=== PATIENT | female | born 1960 | race Caucasian/White ===

== ENCOUNTER 2018-04-30 00:53 | Emergency (ER) | payer BC ==
[2018-04-30] MEDS ORDERED: DIAZEPAM 5 MG TABLET PO ONE (01:21)
[2018-04-30] MEDS ORDERED: MECLIZINE HCL 25 MG TABLET PO ONE (01:21)
[2018-04-30] MEDS ORDERED: NORMAL SALINE 1000 ML 1,000 ML IV ONE (01:22)
--- NOTE | 2018-04-30 01:24 | ER Document Report ---
ED General - General Chief Complaint: Breathing Difficulty Stated Complaint: DIFFICULTY BREATHING Time Seen by Provider: 04/30/18 01:10 Mode of Arrival: Ambulatory Information source: Patient Notes: 57-year-old female with COPD presents with complaint of dizziness, shortness of breath that began just prior to arrival. Patient states that she got into bed and felt like she was going to pass out. She states that she kept having to sit up because she felt like she was having difficulty breathing. Patient does admit to persistent tobacco use. She denies any recent cough, fever, chills, chest pain, abdominal pain, back pain, dysuria, hematuria. She denies sick contacts. TRAVEL OUTSIDE OF THE [place] IN LAST 30 DAYS: No - HPI Onset: Just prior to arrival Onset/Duration: Sudden, Persistent Quality of pain: No pain Associated symptoms: Shortness of breath, Other - Dizziness Exacerbated by: Supine Relieved by: Sitting Similar symptoms previously: No Recently seen / treated by doctor: No - Related Data Allergies/Adverse Reactions: No Known Allergies Allergy (Unverified 09/23/14 15:15) Past Medical History - General Information source: Patient, [facility] Records - Social History Smoking Status: Current Every Day Smoker Cigarette use (# per day): Yes - 15 Smoking Education Provided: Yes - Smoking cessation counseling was provided for 4 minutes at the bedside Frequency of alcohol use: Occasional Drug Abuse: None Lives with: Family Family History: CAD Patient has suicidal ideation: No Patient has homicidal ideation: No Pulmonary Medical History: Reports: Hx COPD - Immunizations Hx Diphtheria, Pertussis, Tetanus Vaccination: - unk Physical Exam - Vital signs Vitals: Temp Pulse Resp BP Pulse Ox 98.2 F 85 18 141/97 H 97 04/30/18 00:59 04/30/18 00:59 04/30/18 00:59 04/30/18 00:59 04/30/18 00:59 - Notes Notes: PHYSICAL EXAMINATION: GENERAL: Well-appearing, well-nourished and in no acute distress. HEAD: Atraumatic, normocephalic. EYES: Pupils equal round and reactive to light, extraocular movements intact, conjunctiva are normal. ENT: Nares patent, oropharynx clear without exudates. Moist mucous membranes. NECK: Normal range of motion, supple without lymphadenopathy LUNGS: Breath sounds clear to auscultation bilaterally and equal. No wheezes rales or rhonchi. HEART: Regular rate and rhythm without murmurs ABDOMEN: Soft, nontender, nondistended abdomen. No guarding, no rebound. No masses appreciated. Female : deferred Musculoskeletal: Normal range of motion, no pitting or edema. No cyanosis. NEUROLOGICAL: Cranial nerves grossly intact. Normal speech, normal gait. Normal sensory, motor exams. Tremulous. 5/5 in dorsi and plantar flexion. NIH -2 for bilateral lower extremity drift. Romberg negative PSYCH: Anxious, tearful. SKIN: Warm, Dry, normal turgor, no rashes or lesions noted. Course - Re-evaluation Re-evalutation: Laboratory 04/30/18 04/30/18 04/30/18 01:40 01:40 01:40 WBC 6.8 RBC 4.56 Hgb 14.8 Hct 42.4 MCV 93 MCH 32.5 MCHC 34.9 RDW 13.1 Plt Count 231 Seg Neutrophils % 40.4 L Lymphocytes % 47.3 H Monocytes % 8.9 Eosinophils % 2.8 Basophils % 0.6 Absolute Neutrophils 2.7 Absolute Lymphocytes 3.2 Absolute Monocytes 0.6 Absolute Eosinophils 0.2 Absolute Basophils 0.0 PT 13.5 INR 0.98 APTT 34.2 D-Dimer 0.34 Sodium 143.2 Potassium 4.2 Chloride 106 Carbon Dioxide 25 Anion Gap 12 BUN 13 Creatinine 0.87 Est GFR ( Amer) > 60 Est GFR (Non-Af Amer) > 60 Glucose 135 H Calcium 10.0 Total Bilirubin 0.4 Direct Bilirubin 0.2 Neonat Total Bilirubin Not Reportable Neonat Direct Bilirubin Not Reportable Neonat Indirect Bili Not Reportable AST 22 ALT 18 Alkaline Phosphatase 100 Creatine Kinase 91 CK-MB (CK-2) Troponin I NT-Pro-B Natriuret Pep Total Protein 6.5 Albumin 4.0 Lipase 339.4 H Urine Color Urine Appearance Urine pH Ur Specific [place] Urine Protein Urine Glucose (UA) Urine Ketones Urine Blood Urine Nitrite Urine Bilirubin Urine Urobilinogen Ur Leukocyte Esterase Urine WBC (Auto) Urine RBC (Auto) Urine Bacteria (Auto) Squamous Epi Cells Auto Urine Mucus (Auto) Urine Ascorbic Acid Salicylates < 1.0 L Urine Opiates Screen Urine Methadone Screen Acetaminophen < 10 L Ur Barbiturates Screen Ur Phencyclidine Scrn Ur Amphetamines Screen U Benzodiazepines Scrn Urine Cocaine Screen U Marijuana (THC) Screen Serum Alcohol < 10 04/30/18 04/30/18 04/30/18 01:40 02:17 02:17 WBC RBC Hgb Hct MCV MCH MCHC RDW Plt Count Seg Neutrophils % Lymphocytes % Monocytes % Eosinophils % Basophils % Absolute Neutrophils Absolute Lymphocytes Absolute Monocytes Absolute Eosinophils Absolute Basophils PT INR APTT D-Dimer Sodium Potassium Chloride Carbon Dioxide Anion Gap BUN Creatinine Est GFR ( Amer) Est GFR (Non-Af Amer) Glucose Calcium Total Bilirubin Direct Bilirubin Neonat Total Bilirubin Neonat Direct Bilirubin Neonat Indirect Bili AST ALT Alkaline Phosphatase Creatine Kinase CK-MB (CK-2) 2.23 Troponin I < 0.012 NT-Pro-B Natriuret Pep 66 Total Protein Albumin Lipase Urine Color STRAW Urine Appearance CLEAR Urine pH 6.0 Ur Specific [place] 1.002 Urine Protein NEGATIVE Urine Glucose (UA) NEGATIVE Urine Ketones NEGATIVE Urine Blood NEGATIVE Urine Nitrite NEGATIVE Urine Bilirubin NEGATIVE Urine Urobilinogen NEGATIVE Ur Leukocyte Esterase TRACE H Urine WBC (Auto) 4 Urine RBC (Auto) 0 Urine Bacteria (Auto) 2+ Squamous Epi Cells Auto 5 Urine Mucus (Auto) RARE Urine Ascorbic Acid NEGATIVE Salicylates Urine Opiates Screen NEGATIVE Urine Methadone Screen NEGATIVE Acetaminophen Ur Barbiturates Screen NEGATIVE Ur Phencyclidine Scrn NEGATIVE Ur Amphetamines Screen NEGATIVE U Benzodiazepines Scrn NEGATIVE Urine Cocaine Screen UNCONFIRMED POSITIVE U Marijuana (THC) Screen UNCONFIRMED POSITIVE Serum Alcohol 04/30/18 04:00 57-year-old female presents with complaint of "just not feeling right", dizziness, shortness of breath. Vital signs stable upon arrival. Exam is significant for bilateral tremors, tearfulness, anxiousness. NIH was performed and scored 2 for bilateral lower extremity drift. Otherwise the patient is neurologically intact. She ambulates without difficulty. She is orthostatic negative. CT of the head was obtained and showed no acute process. CTA of the head and neck were obtained and showed no vessels with significant stenosis. Chest x-ray indicative of COPD. Patient did receive breathing treatments, IV fluids, meclizine, Valium, Zofran. On reevaluation she is sleeping soundly. CBC, CMP, urinalysis is unremarkable. Urine drug screen positive for cocaine and marijuana. This could be the source of the patient's dizziness, anxiousness , dyspnea. EKG was obtained and interpreted by myself and shows the patient to be in normal sinus rhythm at a rate of 78 with a borderline prolonged QTC at 488. Patient consistently denying chest pain. Patient did not disclose to me her drug use when asked earlier in the history. Patient was evaluated and treated as appropriate for the patient's presenting symptoms and complaint, with consideration of any critical or life threatening conditions that may be associated with their obtained history and exam as noted above. All results were discussed with patient. Patient provided the opportunity to ask questions, and express concerns. Patient was educated on treatments based on their presumed diagnosis as noted above. At this time we will discharge the patient with return precautions and follow-up recommendations. Verbal discharge instructions given a the bedside. Medication warnings reviewed. Patient is in agreement with this plan and has verbalized understanding of return precautions. After careful consideration I feel that that patient can be safely discharged from the emergency department, they were advised to followup with a primary care physician in 2-3 days. Dictation on this chart was performed using voice recognition software and may result in unintended grammatical, spelling, syntax or errors. 04/30/18 04:00 04/30/18 04:11 04/30/18 05:50 - Vital Signs Vital signs: Temp Pulse Resp BP Pulse Ox 98.2 F 72 18 104/64 97 04/30/18 00:59 04/30/18 02:58 04/30/18 00:59 04/30/18 02:58 04/30/18 00:59 - Laboratory Result Diagrams: 04/30/18 01:40 04/30/18 01:40 Laboratory results interpreted by me: 04/30/18 04/30/18 04/30/18 01:40 01:40 02:17 Seg Neutrophils % 40.4 L Lymphocytes % 47.3 H Glucose 135 H Lipase 339.4 H Ur Leukocyte Esterase TRACE H Salicylates < 1.0 L Acetaminophen < 10 L - Diagnostic Test Radiology reviewed: Image reviewed, Reports reviewed - EKG Interpretation by Me EKG shows normal: Sinus rhythm Rate: Normal Rhythm: NSR When compared to previous EKG there are: No significant change Discharge - Discharge Clinical Impression: Cocaine use, Marijuana use, Dizziness Dyspnea Qualifiers: Dyspnea type: unspecified Qualified Code(s): R06.00 - Dyspnea, unspecified COPD (chronic obstructive pulmonary disease) Qualifiers: COPD type: unspecified COPD Qualified Code(s): J44.9 - Chronic obstructive pulmonary disease, unspecified Condition: Good Disposition: HOME, SELF-CARE Instructions: Chronic Obstructive Lung Disease ([facility]), Cocaine Abuse ([facility]), Dizziness ([facility]), Dyspnea, Nonspecific ([facility]) Additional Instructions: The CAT scan of your head and your lab work that was performed today was normal. Your urine drug screen was positive for cocaine and marijuana which is likely the cause of your dizziness, anxiety. Please abstain from using illicit drugs. Follow up with your [id number] hours for further care or return to the ED IMMEDIATELY if symptoms worsen or you have any concerns. If you cannot afford to follow up with your primary care physician a list of low cost clinics have been provided at the end of your discharge papers as well. Most prescribed medications have multiple side effects. The safest thing to do is when filling your prescription speak to your pharmacist regarding possible interactions with your normal home medications and over the counter medications such as Ibuprofen, Tylenol, Benadryl. If you experience any symptoms that cause you discomfort or concern you should discontinue the medication immediately and return to the emergency room or call your primary care physician. Forms: Smoking Cessation Education [facility] [NO LOCAL MD] - Follow up as needed ED NIH Stroke Scale - NIH Stroke Scale *: 1. NIH scale should be completed with appropriate accompanying assessment tools. *: 2. The NIH should reflect what the patient is capable of doing and should not be coached by the clinician. 1a. Level of Consciousness: 0=Alert;keenly responsive -: 1=Drowsy -: 2=Obtunded -: 3=Coma/unresponsive or reflex to noxious stimuli. 1a. Responses: 0 1b. Orientation Questions: a. What month is it? -: b. How old are you? -: 0=Answers both questions correctly. -: 1=Answers one question correctly or patient is intubated or has orotracheal trauma. -: 2=Answers neither question correctly. 1b. Responses: 0 1c. Response to commands: a. Open and close eyes? -: b. Supply Requirements Officer and release hand? -: Credit is given despite weakness. Demonstration of task is permitted. Substitute command if hands cannot be used. -: 0=Performs both tasks correctly -: 1=Performs one task correctly -: 2=Performs neither task correctly 1c. Responses: 0 2. Gaze: Establish eye contact and instruct patient to "Follow my finger" -: 0=Normal -: 1=Partial gaze palsy. Gaze is abnormal in one or both eyes, but where forced deviation or total gaze paresis is not present. -: 2=Forced deviation or total gaze paresis. 2. Responses: 0 3. Visual Hurd: Sees fingers in all four quadrants. -: 0=No visual loss. -: 1=Partial hemianopsia. -: 2=Complete hemianopsia. -: 3=Bilateral hemianopsia (including Cortical blindness) 3. Responses: 0 4. Facial Movement: Instruct patient to: -: a. Show me your teeth -: b. Raise your eyebrows -: c. Close your eyes -: d. Smile -: 0=Normal symmetrical movement -: 1=Minor paralysis (flattened nasolabial fold, asymmetry on smiling). -: 2=Partial paralysis (total or near total paralysis of lower face). -: 3=Complete paralysis of upper and lower face 4. Responses: 0 5. Motor functions (left arm): Alternate sides and extend each arm with palms down (90 degrees if sitting or 45 degrees for supine). -: 0=No drift;limb holds for full 10 seconds. -: 1=Drift; limb holds but drifts down before full 10 seconds, but does not hit bed. -: 2=Some effort against gravity; limb cannot get to or maintain position. -: 3=No effort against gravity; limb falls. -: 4=No movement. -: UN=Amputation, joint fusion, explain in comments. 5. Responses (left arm): 0 5. Motor Functions (right arm): Alternate sides and extend each arm with palms down (90 degrees if sitting or 45 degrees for supine). -: 0=No drift;limb holds for full 10 seconds. -: 1=Drift; limb holds but drifts down before full 10 seconds, but does not hit bed. -: 2=Some effort against gravity; limb cannot get to or maintain position. -: 3=No effort against gravity; limb falls. -: 4=No movement. -: UN=Amputation, joint fusion, explain in comments. 5. Responses (right arm): 0 6. Motor Functions (left leg): With patient lying supine, alternate sides and extend each leg (30 degrees always while supine). -: 0=No drift, leg holds position for full 5 seconds -: 1=Drift; leg falls before full 5 seconds but does not hit bed. -: 2=Some effort against gravity, leg falls to bed but some effort against gravity. -: 3=No effort against gravity, leg falls to bed immediately. -: 4=No movement. -: UN=Amputation, joint fusion; explain in comments. 6. Responses (left leg): 1 6. Motor Functions (right leg): With patient lying supine, alternate sides and extend each leg (30 degrees always while supine). -: 0=No drift, leg holds position for full 5 seconds -: 1=Drift; leg falls before full 5 seconds but does not hit bed. -: 2=Some effort against gravity, leg falls to bed but some effort against gravity. -: 3=No effort against gravity, leg falls to bed immediately. -: 4=No movement. -: UN=Amputation, joint fusion; explain in comments. 6. Responses (right leg): 1 7. Limb Ataxia: With eyes open instruct patient to: -: a. "Touch your finger to your nose". -: b. "Touch your heel to your guerrero" -: 0=Absent -: 1=Present in one limb. -: 2=Present in two limbs. -: UN=Amputation or joint fusion; explain in comments. 7. Responses: 0 8. Sensory: Test sensation using pinprick or noxious stimuli. Test as many body parts as possible. -: 0=Normal;no sensory loss -: 1=Mile to moderate sensory loss (patient feels pin prick but is less sharp on affected side). -: 2=Severe or total sensory loss. 8. Responses: 0 9. Best Language: Instruct patient to: -: a. "Describe what you see in this picture." -: b. "Name the items in this picture." -: c. "Read these sentences." -: 0=No aphasia, normal -: 1=Mild to moderate aphasia. -: 2=Severe aphasia -: 3=Mute, global aphasia, no usable speech or auditory comprehension. 9. Responses: 0 10. Articulation, Dysarthia: Instruct patient to: -: "Read these words" or "Repeat these words" -: 0=Normal -: 1=Mild to moderate; patient may slur some words but can be understood without difficulty. -: 2=Severe; patients speech so slurred as to be unintelligible in the absence of dysphasia. -: UN=Intubated or other physical barrier, explain in comments. 10. Responses: 0 11. Extinction or inattention: 0=No abnormality -: 1= Visual, tactile, auditory, spatial, or personal inattention or extinction to bilateral simulation in one or the sensory modalities. -: 2=Profound eddie-inattention or eddie-inattention to more than one modality; does not recognize own hand. 11. Responses: 0 Total Score: 2
[2018-04-30 01:56] LABS: ABSOLUTE EOSINOPHILS # (AUTO) 0.2 10^3/uL (0.0-0.6); ABSOLUTE LYMPHOCYTES (AUTO) 3.2 10^3/uL (0.5-4.7); ABSOLUTE MONOCYTES (AUTO) 0.6 10^3/uL (0.1-1.4); ABSOLUTE NEUT (AUTO) 2.7 10^3/uL (1.7-8.2); BASOPHILS % (AUTO) 0.6 % (0-2); EOSINOPHILS % (AUTO) 2.8 % (0-6); HEMATOCRIT 42.4 % (36.0-47.0); HEMOGLOBIN 14.8 g/dL (12.0-15.5); LYMPHOCYTES % (AUTO) 47.3 % (13-45); MEAN CORPUSCULAR HEMOGLOBIN 32.5 pg (27.0-33.4); MEAN CORPUSCULAR HGB CONC 34.9 g/dL (32.0-36.0); MEAN CORPUSCULAR VOLUME 93 fl (80-97); MONOCYTES % (AUTO) 8.9 % (3-13); PLATELET COUNT 231 10^3/uL (150-450); RED BLOOD COUNT 4.56 10^6/uL (3.72-5.28); RED CELL DISTRIBUTION WIDTH 13.1 % (11.5-14.0); SEGMENTED NEUTROPHILS % (AUTO) 40.4 % (42-78); TOTAL CELLS COUNTED % (AUTO) 100 %; WHITE BLOOD COUNT 6.8 10^3/uL (4.0-10.5)
[2018-04-30 01:58] LABS: INTERNATIONAL RATION (INR) 0.98
[2018-04-30 01:59] LABS: PARTIAL THROMBOPLASTIN TIME 34.2 SEC (23.5-35.8)
[2018-04-30 02:01] LABS: D-DIMER 0.34 ug/mL (0.00-0.50)
[2018-04-30] MEDS ORDERED: IPRATROPIUM/ALBUTEROL 0.5-2.5 MG/3 ML AMPUL NEB ONE (02:03)
[2018-04-30 02:04] LABS: PROTHROMBIN TIME 13.5 SEC (11.4-15.4)
[2018-04-30 02:13] LABS: ALANINE AMINOTRANSFERASE 18 U/L (9-52); ALCOHOL < 10 mg/dL (NONE DETECTED); ALKALINE PHOSPHATASE 100 U/L (38-126); ANION GAP 12 (5-19); ASPARTATE AMINO TRANSFERASE 22 U/L (14-36); BILIRUBIN,DIRECT 0.2 mg/dL (0.0-0.4); BILIRUBIN,TOTAL 0.4 mg/dL (0.2-1.3); BLOOD UREA NITROGEN 13 mg/dL (7-20); CARBON DIOXIDE 25 mmol/L (22-30); CHLORIDE 106 mmol/L (98-107); CREATINE KINASE 91 U/L (30-135); GLUCOSE 135 mg/dL (75-110); LIPASE 339.4 U/L (23-300); POTASSIUM 4.2 mmol/L (3.6-5.0); SODIUM 143.2 mmol/L (137-145); TOTAL PROTEIN 6.5 g/dL (6.3-8.2)
[2018-04-30 02:14] LABS: ACETAMINOPHEN < 10 ug/mL (10-30); SALICYLATE < 1.0 mg/dL (2.0-20.0)
[2018-04-30 02:24] LABS: CREATINE KINASE MB 2.23 ng/mL (<4.55); NT PRO BNP 66 pg/mL (5-900)
[2018-04-30 02:25] LABS: TROPONIN I < 0.012 ng/mL
--- NOTE | 2018-04-30 02:42 | RADIOLOGY REPORT (SQ) ---
EXAM DESCRIPTION: CT HEAD WITHOUT IV CONTRAST COMPLETED DATE/TME: 04/30/2018 01:19 CLINICAL HISTORY: 57 years, Female, dizzy/ difficulty walking COMPARISON: None. TECHNIQUE: 187 Images stored on PACS. All CT scanners at this facility use dose modulation, iterative reconstruction, and/or weight based dosing when appropriate to reduce radiation dose to as low as reasonably achievable (ALARA). [facility]: Dose Right [facility]: CareDose [facility]: Dose Right [facility]: Teradose 4D [facility]: [employer] LIMITATIONS: None. FINDINGS: The globes are intact. Polyps of the maxillary sinuses bilaterally. No displaced or depressed skull fracture. No intra or extra-axial hemorrhage. CT is limited for evaluation of acute infarct. No CT evidence for large or territorial acute infarct. No mass, mass effect, or midline shift. IMPRESSION: Negative exam TECHNICAL DOCUMENTATION: Quality ID # [id number]: Final reports with documentation of one or more dose reduction techniques (e.g., Automated exposure control, adjustment of the mA and/or kV according to patient size, use of iterative reconstruction technique) 2010 [employer]- All Rights Reserved
[2018-04-30 02:45] LABS: APPEARANCE,URINE CLEAR; BILIRUBIN,URINE NEGATIVE (NEGATIVE); COLOR,URINE STRAW; GLUCOSE, URINE NEGATIVE (NEGATIVE); KETONES,URINE NEGATIVE (NEGATIVE); LEUKOCYTE ESTERASE,URINE TRACE (NEGATIVE); NITRITE,URINE NEGATIVE (NEGATIVE); PROTEIN,URINE NEGATIVE (NEGATIVE); URINE SPECIFIC GRAVITY 1.002; UROBILINOGEN,URINE NEGATIVE mg/dL (<2.0)
--- NOTE | 2018-04-30 02:48 | RADIOLOGY REPORT (SQ) ---
EXAM DESCRIPTION: XR CHEST 2 VIEWS COMPLETED DATE/TME: 04/30/2018 01:21 CLINICAL HISTORY: 57 years, Female, sob COMPARISON: None. NUMBER OF VIEWS: 2 TECHNIQUE: Frontal and lateral views of the chest LIMITATIONS: None. FINDINGS: Heart size is normal. Lungs are hyperinflated but clear. No pneumothorax IMPRESSION: Underlying hyperinflation. Lungs are clear 2010 [facility] [employer]- All Rights Reserved
--- NOTE | 2018-04-30 02:58 | RADIOLOGY REPORT (SQ) ---
CLINICAL DATA: 57-year-old female with dizziness and difficulty walking. TECHNICAL DATA: Following dynamic intravenous nonionic contrast infusion, multiple axial helical CT images with multiplanar reconstructions were obtained through the head and neck. Oblique MIP images were also performed. The CT study is performed according to ALARA (as low as reasonably achievable) or ALARA/IMAGE GENTLY, with automatic adjustment of mA and/or kV according to patient size. Performed on: 04/30/2018 at 2:22 AM COMPARISONS: None FINDINGS: CTA NECK: AORTA: The aortic arch is well imaged and demonstrates conventional branching. The origins of the left subclavian artery, left common carotid artery and innominate artery are patent. VERTEBRAL ARTERIES: The LEFT vertebral artery is normal in caliber and contour without evidence of dissection or significant stenosis. There is mild tortuosity of the left vertebral artery. The left vertebral artery is dominant. The RIGHT vertebral artery is normal in caliber and contour without evidence of dissection or significant stenosis. There is mild tortuosity of the right vertebral artery. CAROTID ARTERIES: The LEFT common carotid artery is unremarkable. There is no evidence of stenosis, dissection or occlusion The carotid bulb demonstrates minimal atherosclerotic calcification. The LEFT internal carotid artery is normal in caliber and contour without evidence of significant stenosis, dissection or occlusion. The LEFT external carotid artery is unremarkable. The RIGHT common carotid artery is unremarkable. There is no evidence of stenosis, dissection or occlusion. The carotid bulb demonstrates minimal atherosclerotic calcification. The RIGHT internal carotid artery is unremarkable. There is no evidence of stenosis, dissection or occlusion. There is tortuosity of the proximal right ICA. The RIGHT external carotid artery is unremarkable. CTA HEAD: LEFT: INTERNAL CAROTID ARTERY: The distal internal carotid artery is unremarkable. ANTERIOR CEREBRAL ARTERY:The A1 segment is normal in caliber and contour. The A2 segment is normal in caliber and contour. The region of the anterior communicating artery is unremarkable. MIDDLE CEREBRAL ARTERY: The M1 segment is normal in caliber and contour. The M2 branches normal in caliber and contour. POSTERIOR CEREBRAL ARTERY:The P1 segment is normal in caliber and contour. The P2 segment is normal in caliber and contour. The left posterior communicating artery is patent. VERTEBRAL ARTERY: The intradural left vertebral artery is normal in caliber and contour. RIGHT: INTERNAL CAROTID ARTERY: The distal internal carotid artery is unremarkable. ANTERIOR CEREBRAL ARTERY: The A1 segment is normal in caliber and contour. The A2 segment is normal in caliber and contour. MIDDLE CEREBRAL ARTERY:The M1 segment is normal in caliber and contour. The M2 branches normal in caliber and contour. POSTERIOR CEREBRAL ARTERY: The P1 segment is normal in caliber and contour. The P2 segment is normal in caliber and contour. The right posterior communicating artery is patent. VERTEBRAL ARTERY: The intradural right vertebral artery is normal in caliber and contour. BASILAR ARTERY: The basilar artery is normal in caliber and contour. DURAL VENOUS SINUSES: The dural venous sinuses are patent. NON-ANGIOGRAPHIC FINDINGS: There are minimal centrilobular emphysematous changes in the visualized lung apices. The thyroid gland is unremarkable. There are mild degenerative changes of the mid to lower cervical spine at C5-C6 and C6-C7. There is mild mucosal thickening of the maxillary sinuses. IMPRESSION: 1. Normal CTA of the neck. There is no evidence of stenosis as per the NASCET criteria. 2. Normal intracranial CTA. 3. Minimal centrilobular emphysematous changes in the visualized lung apices. 4. Mild degenerative changes of the mid to lower cervical spine. 5. There is mild tortuosity of the proximal right ICA and bilateral vertebral arteries.
[2018-04-30 03:16] LABS: URINE AMPHETAMINES SCREEN NEGATIVE; URINE BARBITURATES SCREEN NEGATIVE; URINE BENZODIAZEPINES SCREEN NEGATIVE; URINE COCAINE SCREEN UNCONFIRMED POSITIVE; URINE MARIJUANA (THC) SCREEN UNCONFIRMED POSITIVE; URINE METHADONE SCREEN NEGATIVE; URINE PHENCYCLIDINE SCREEN NEGATIVE
[2018-04-30 06:05] VITALS: BP 110/90
--- NOTE | 2018-04-30 07:01 | EKG REPORT ---
SEVERITY:- BORDERLINE ECG - SINUS RHYTHM BORDERLINE PROLONGED QT INTERVAL : Confirmed by: Joel Lagos MD 30-Apr-2018 07:01:21
== END 2018-04-30 06:05 | disposition home or self-care (01) ==
LOC: ER 00:53
DX: J44.9 Chronic obstructive pulmonary disease, unspecified (principal); F14.90 Cocaine use, unspecified, uncomplicated; F12.90 Cannabis use, unspecified, uncomplicated; R06.00 Dyspnea, unspecified; R42 Dizziness and giddiness; R25.1 Tremor, unspecified; F41.9 Anxiety disorder, unspecified; F17.210 Nicotine dependence, cigarettes, uncomplicated
CPT/HCPCS: 93005; 99406; 94640; 99285; 96360; 96361; 36415; 82553; 80307 ×4; 82550; 83690; 85025; 85610; 85730; 80053; 81001; 84484; 85379; 83880; 71046; 70450; 70496; 70498; 93010; J7030; J7620

== ENCOUNTER 2020-03-18 00:22 | Emergency (ER) | payer BC ==
--- NOTE | 2020-03-18 00:51 | ER Document Report ---
ED Medical Screen (RME) - General Chief Complaint: Chest Pain Stated Complaint: CHEST PAIN/ARM NUMBNESS Time Seen by Provider: 03/18/20 00:47 Primary Care Provider: OLGA CAMARILLO MD [Primary Care Provider] - Follow up as needed Mode of Arrival: Ambulatory Information source: Patient Notes: 59-year-old female coming in today with history of chest pain. P atient states she was standing while working and had a sudden severe stabbing pain through the middle of her chest. It made her short of breath. Made her dizzy. Never worked up for chest pain before Physical exam General: No acute distress Cardio regular rate and rhythm no murmurs rubs or gallops Pulmonary clear to auscultation bilaterally. No respiratory distress GI no abdominal tenderness. Neuro no focal neuro deficits I have greeted and performed a rapid initial assessment of this patient. A comprehensive ED assessment and evaluation of the patient, analysis of test results and completion of the medical decision making process will be conducted by additional ED providers. TRAVEL OUTSIDE OF THE [place] IN LAST 30 DAYS: No - Related Data Allergies/Adverse Reactions: No Known Allergies Allergy (Unverified 09/23/14 15:15) Past Medical History - Social History Chew tobacco use (# tins/day): No Frequency of alcohol use: Rare Drug Abuse: None Pulmonary Medical History: Reports: Hx COPD Renal/ Medical History: Denies: Hx Peritoneal Dialysis - Immunizations Hx Diphtheria, Pertussis, Tetanus Vaccination: - unk Physical Exam - Vital signs Vitals: Temp Pulse Resp BP Pulse Ox 98.5 F 80 20 131/94 H 98 03/18/20 00:39 03/18/20 00:39 03/18/20 00:39 03/18/20 00:39 03/18/20 00:39 Course - Vital Signs Vital signs: Temp Pulse Resp BP Pulse Ox 98.5 F 80 20 131/94 H 98 03/18/20 00:39 03/18/20 00:39 03/18/20 00:39 03/18/20 00:39 03/18/20 00:39 Doctor's Discharge - Discharge Referrals: OLGA CAMARILLO MD [Primary Care Provider] - Follow up as needed
[2020-03-18 01:04] LABS: ABSOLUTE EOSINOPHILS # (AUTO) 0.2 10^3/uL (0.0-0.6); ABSOLUTE LYMPHOCYTES (AUTO) 2.7 10^3/uL (0.5-4.7); ABSOLUTE MONOCYTES (AUTO) 0.4 10^3/uL (0.1-1.4); ABSOLUTE NEUT (AUTO) 2.7 10^3/uL (1.7-8.2); BASOPHILS % (AUTO) 0.5 % (0-2); EOSINOPHILS % (AUTO) 2.6 % (0-6); HEMATOCRIT 40.7 % (36.0-47.0); HEMOGLOBIN 14.3 g/dL (12.0-15.5); LYMPHOCYTES % (AUTO) 44.9 % (13-45); MEAN CORPUSCULAR HEMOGLOBIN 32.5 pg (27.0-33.4); MEAN CORPUSCULAR HGB CONC 35.2 g/dL (32.0-36.0); MEAN CORPUSCULAR VOLUME 92 fl (80-97); PLATELET COUNT 222 10^3/uL (150-450); RED BLOOD COUNT 4.41 10^6/uL (3.72-5.28); TOTAL CELLS COUNTED % (AUTO) 100 %
[2020-03-18 01:17] LABS: ALBUMIN 4.3 g/dL (3.5-5.0); ALKALINE PHOSPHATASE 89 U/L (38-126); ANION GAP 8 (5-19); ASPARTATE AMINO TRANSFERASE 24 U/L (14-36); BILIRUBIN,DIRECT 0.3 mg/dL (0.0-0.4); BILIRUBIN,TOTAL 0.5 mg/dL (0.2-1.3); BLOOD UREA NITROGEN 14 mg/dL (7-20); CARBON DIOXIDE 26 mmol/L (22-30); CHLORIDE 107 mmol/L (98-107); CREATINE KINASE 105 U/L (30-135); GLUCOSE 154 mg/dL (75-110); POTASSIUM 3.8 mmol/L (3.6-5.0); TOTAL PROTEIN 6.8 g/dL (6.3-8.2)
--- NOTE | 2020-03-18 01:38 | EKG REPORT ---
SEVERITY:- ABNORMAL ECG - SINUS RHYTHM FIRST DEGREE AV BLOCK : Confirmed by: Lexi Parks MD 18-Mar-2020 01:37:55
[2020-03-18 01:39] LABS: TROPONIN I < 0.012 ng/mL
[2020-03-18] MEDS ORDERED: ASPIRIN 325 MG TABLET PO ONE (01:51)
--- NOTE | 2020-03-18 03:41 | RADIOLOGY REPORT (SQ) ---
EXAM DESCRIPTION: XR CHEST 1 VIEW COMPLETED DATE/TME: 03/18/2020 00:49 CLINICAL HISTORY: 59 years, Female, cp COMPARISON: 04/30/2018 NUMBER OF VIEWS: One TECHNIQUE: AP view of the chest LIMITATIONS: None. FINDINGS: The lungs are clear. The heart is normal in size. No pneumothorax or pleural effusion. No acute fracture. No intraperitoneal free air. IMPRESSION: No acute cardiopulmonary abnormality. copyright 2010 [employer]- All Rights Reserved
--- NOTE | 2020-03-18 04:24 | ER Document Report ---
ED General - General Chief Complaint: Chest Pain Stated Complaint: CHEST PAIN/ARM NUMBNESS Time Seen by Provider: 03/18/20 00:47 Primary Care Provider: KARINE GUTIERREZ MD [ACTIVE STAFF] - 03/20/20 OLGA CAMARILLO MD [NO LOCAL MD] - Follow up as needed Mode of Arrival: Ambulatory TRAVEL OUTSIDE OF THE [place] IN LAST 30 DAYS: No - HPI Notes: Patient is a 59-year-old female with a history of COPD who presents with chest pain that began earlier this evening. Around 10PM this evening, while the patient was walking at work, she had a sudden onset of sharp, pressure-like substernal chest pain with radiating left arm tingling. She states she went to sit down and became SOB and lightheaded. She states the pain lasted about 30 minutes and resolved while she was at rest. She currently reports left chest wall tenderness but attributes it to her pushing on her chest as that helped improved her pain. She denies nausea, vomiting, abdominal pain, fever, cough, diarrhea and constipation. Patient's mother from CAD at the age of 73. Patient is a smoker and smokes about 1 pack every 3 days. - Related Data Allergies/Adverse Reactions: No Known Allergies Allergy (Unverified 09/23/14 15:15) Past Medical History - General Information source: Patient - Social History Smoking Status: Current Every Day Smoker Cigarette use (# per day): Yes - 1 pack every 3 days Chew tobacco use (# tins/day): No Frequency of alcohol use: Rare Drug Abuse: None Family History: CAD Patient has homicidal ideation: No Pulmonary Medical History: Reports: Hx COPD Renal/ Medical History: Denies: Hx Peritoneal Dialysis - Immunizations Hx Diphtheria, Pertussis, Tetanus Vaccination: - unk Review of Systems - Review of Systems Constitutional: No symptoms reported EENT: No symptoms reported Cardiovascular: See HPI Respiratory: See HPI Gastrointestinal: No symptoms reported Genitourinary: No symptoms reported Female Genitourinary: No symptoms reported Musculoskeletal: No symptoms reported Skin: No symptoms reported Hematologic/Lymphatic: No symptoms reported Neurological/Psychological: See HPI Physical Exam - Vital signs Vitals: Temp Pulse Resp BP Pulse Ox 98.5 F 80 20 131/94 H 98 03/18/20 00:39 03/18/20 00:39 03/18/20 00:39 03/18/20 00:39 03/18/20 00:39 - Notes Notes: PHYSICAL EXAMINATION: VITALS: Vitals reviewed and within normal limits. GENERAL: Well-appearing, well-nourished and in no acute distress. HEAD: Atraumatic, normocephalic. EYES: Pupils equal round and reactive to light, extraocular movements intact, sclera anicteric, conjunctiva are normal. ENT: nares patent, oropharynx clear without exudates. Moist mucous membranes. NECK: Normal range of motion, supple without lymphadenopathy. LUNGS: Breath sounds clear to auscultation bilaterally and equal. No wheezes rales or rhonchi. HEART: Regular rate and rhythm without murmurs. ABDOMEN: Soft, nontender, normoactive bowel sounds. No guarding, no rebound. No masses appreciated. EXTREMITIES: Normal range of motion, no pitting or edema. No cyanosis. NEUROLOGICAL: No focal neurological deficits. Moves all extremities spontaneously and on command. PSYCH: Normal mood, normal affect. SKIN: Warm, Dry, normal turgor, no rashes or lesions noted. Course - Re-evaluation Re-evalutation: Patient is a 59-year-old female with a history of COPD who presents with chest p ain that began earlier this evening. Around 10PM this evening, while the patient was walking at work, she had a sudden onset of sharp, pressure-like substernal chest pain with radiating left arm tingling. She states the pain lasted about 30 minutes and resolved while she was at rest. EKG without ST elevations or depressions, and negative initial troponin. Clinical suspicion for ACS given clinical history, family hx, and smoking hx. HEART score equal to 4. CXR without evidence of pneumothorax or pneumonia. No widened mediastinum. HEART Score: 4 Chest pain in a patient with concern for cardiac etiology. I discussed with patient that, based on their age, risk factors and history that I am concerned and would like to admit the patient for observation. Patient declined and would like to be discharged home. I consulted with my attending, Dr. Zhu, concerning the patient and she recommends repeating a second troponin and prompt cardiology follow up if the patient refuses to be admitted. I discussed this with the patient and she is agreement. Repeat troponin negative. Discussed results with the patient. Lengthy discussion concerning the importance of prompt follow up with cardiology and recommended she call this morning for an appointment in two days. Patient will be discharged home, return precautions given. The patient demonstrates decision making capacity and has verbalized an understanding of these risks to me. - Vital Signs Vital signs: Temp Pulse Resp BP Pulse Ox 97.7 F 80 11 L 124/91 H 99 03/18/20 06:29 03/18/20 00:39 03/18/20 06:29 03/18/20 06:29 03/18/20 06:29 - Laboratory Result Diagrams: 03/18/20 00:48 03/18/20 00:48 Laboratory results interpreted by me: 03/18/20 00:48 Glucose 154 H - EKG Interpretation by Me Additional EKG results interpreted by me: Normal sinus with a rate of 73. QTc 428. Normal axis. No T wave inversions or ST segment changes in consecutive leads. Discharge - Discharge Clinical Impression: Chest pain Qualifiers: Chest pain type: unspecified Qualified Code(s): R07.9 - Chest pain, unspecified Condition: Stable Disposition: HOME, SELF-CARE Additional Instructions: It is very important that you follow up with cardiology in two day for further workup. Call today and make an appointment. Chest Pain of Unclear Cause The exact cause of your chest pain isn't clear. Fortunately, there is no evidence of a dangerous medical condition. Further testing may be required to find the source of the pain. Most often, we find that this pain is coming from the chest wall -- the muscles or rib joints in the chest. But chest pain can come from the lung and lung lining, the esophagus, the heart valves or heart lining, and even the stomach or gallbladder. Rest. Eat lightly until the pain is gone. We may prescribe medicine for pain and inflammation. You should call the physician immediately if the pain radiates to the shoulder, jaw or arms; if you start to run a fever or develop a cough; or if you develop shortness of breath, or other new or alarming symptoms. Referrals: OLGA CAMARILLO MD [NO LOCAL MD] - Follow up as needed KARINE GUTIERREZ MD [ACTIVE STAFF] - 03/20/20
[2020-03-18 06:33] VITALS: BP 124/91
== END 2020-03-18 06:34 | disposition home or self-care (01) ==
LOC: ER 00:22
DX: R07.2 Precordial pain (principal); J44.9 Chronic obstructive pulmonary disease, unspecified; R20.2 Paresthesia of skin; R06.02 Shortness of breath; R42 Dizziness and giddiness; F17.210 Nicotine dependence, cigarettes, uncomplicated; Z82.49 Family history of ischemic heart disease and other diseases of the circulatory system
CPT/HCPCS: 36415; 71045; 80053; 82550; 82553; 84484; 85025; 93005; 93010; 99285